=== PATIENT | male | born 1990 | race African-American/Black ===

== ENCOUNTER 2022-07-01 08:34 | Emergency (ER) | payer OTHER ==
[~2022-07-01] VITALS: Ht 175.3 cm; Wt 101.0 kg
[2022-07-01 08:37] VITALS: BP 215/151
== END 2022-07-01 09:42 | disposition home or self-care (01) ==
LOC: ER 08:34
DX: R05.9 Cough, unspecified (principal); I10 Essential (primary) hypertension
CPT/HCPCS: 99281

== ENCOUNTER 2022-07-03 13:20 | Emergency (ER) | payer MEDICAID, OTHER ==
[~2022-07-03] VITALS: Ht 175.3 cm; Wt 107.0 kg
[2022-07-03 13:56] VITALS: BP 198/100
== END 2022-07-03 17:56 | disposition left against medical advice (07) ==
LOC: ER 13:20
DX: Z53.21 Procedure and treatment not carried out due to patient leaving prior to being seen by health care provider (principal); I10 Essential (primary) hypertension

== ENCOUNTER 2023-09-02 10:01 | Emergency (ER) | payer MEDICAID ==
[~2023-09-02] VITALS: Ht 175.3 cm; Wt 102.0 kg
[~2023-09-02 10:01] MED LIST: HYDR100T26 MT; NIFE-32 MT
[2023-09-02 10:04] VITALS: O2SAT 99
[2023-09-02] MEDS ORDERED: CLOT113C TP (11:28)
[2023-09-02] MEDS ORDERED: DOXY100C5 MT (11:29)
[2023-09-02 11:30] LABS: CLARITY URINE CLEAR (CLEAR); COLOR URINE YELLOW (YELLOW); GLUCOSE URINE NEGATIVE (NEGATIVE); KETONES URINE NEGATIVE (NEGATIVE); LEUKOCYTE ESTERASE URINE NEGATIVE (NEGATIVE); NITRITE URINE NEGATIVE (NEGATIVE); OCCULT BLOOD URINE NEGATIVE (NEGATIVE); PH URINE 5.5 (4.5-8.0); PROTEIN URINE 3+ (NEGATIVE); SPECIFIC GRAVITY URINE 1.015 (1.005-1.030); UROBILINOGEN URINE 0.2 E.U./dL (0.2-1.0)
[2023-09-02] MEDS: CEFTRIAXONE SODIUM 500MG VIAL IM ONE (11:30)
[2023-09-02] MEDS: CEFTRIAXONE SODIUM 500MG VIAL IM NR (11:45)
[2023-09-02 12:03] LABS: SQUAMOUS EPITHELIAL CELL URINE RARE /lpf (RARE/1+)
[2023-09-02 12:04] LABS: BACTERIA URINE TRACE; RBC URINE 0-2 /hpf (0-2); WBC URINE 0-2 /hpf (0-2)
[2023-09-02 12:49] VITALS: BP 132/75; PULSE 109; RESP 18; TEMP 98.6
[2023-09-05 04:09] LABS: CHLAMYDIA TRACHOMATIS NAA Negative (Negative); NEISSERIA GONORRHOEAE NAA Negative (Negative)
== END 2023-09-02 12:51 | disposition home or self-care (01) ==
LOC: ER 10:16
DX: Z11.3 Encounter for screening for infections with a predominantly sexual mode of transmission (principal); B35.6 Tinea cruris; I10 Essential (primary) hypertension
CPT/HCPCS: 87491; 87591; 81003; 86592; 96372; 99283; J0696; Z7610